=== PATIENT | male | born 1970 | race Caucasian/White ===

== ENCOUNTER → 2019-01-18 | Outpatient (CLI) | payer OTHER | END | disposition home or self-care (01) | LOC: LABWHC1 14:04 | PROVIDERS: ATTEND Internal Medicine Critical Care Medicine | DX: R05 Cough (principal); J45.909 Unspecified asthma, uncomplicated; T78.40XA Allergy, unspecified, initial encounter | CPT/HCPCS: 36415; 82785; 85008 ==